=== PATIENT | female | born 1940 | race African-American/Black ===

== ENCOUNTER 2020-03-11 14:46 | Emergency (ER) | payer MEDICARE, MEDICAID ==
[~2020-03-11] VITALS: Ht 151.8 cm; Wt 70.5 kg
[2020-03-11] MEDS ORDERED: ATEN-72 PO (14:58)
[2020-03-11] MEDS ORDERED: GLIP5 PO (14:58)
[2020-03-11] MEDS ORDERED: ASPI81TA39 PO (14:58)
[2020-03-11] MEDS ORDERED: ATOR20TA86 PO (14:58)
[2020-03-11] MEDS ORDERED: TUMERIC PO (14:58)
[2020-03-11] MEDS ORDERED: GABA-1216 PO (14:58)
[2020-03-11] MEDS ORDERED: HYDR-1475 PO (14:58)
[2020-03-11] MEDS ORDERED: BENA5TAB26 PO (14:58)
[2020-03-11] MEDS ORDERED: NIFE90TA63 PO (14:58)
[2020-03-11] MEDS ORDERED: SULF500T60 PO (14:58)
[2020-03-11] MEDS ORDERED: FOLI-130 PO (14:58)
[2020-03-11] MEDS ORDERED: METH2.5 PO (15:00)
[2020-03-11] MEDS ORDERED: ACETAMINOPHEN 500 MG TABLET PO ONE (15:15)
[2020-03-11] MEDS ORDERED: BENA20TA11 PO (15:18)
[2020-03-11] MEDS ORDERED: TURM500C9 PO (15:18)
[2020-03-11] MEDS ORDERED: MORPHINE SULFATE 2 MG/ML SYRINGE IM ONE (16:45)
[2020-03-11 17:13] VITALS: BP 202/91
== END 2020-03-11 17:19 | disposition home or self-care (01) ==
LOC: EMS 14:55
DX: S43.402A Unspecified sprain of left shoulder joint, initial encounter (principal); E11.9 Type 2 diabetes mellitus without complications; E78.00 Pure hypercholesterolemia, unspecified; I10 Essential (primary) hypertension; Z79.82 Long term (current) use of aspirin; W19.XXXA Unspecified fall, initial encounter; Y93.89 Activity, other specified; Y92.89 Other specified places as the place of occurrence of the external cause; Y99.8 Other external cause status
CPT/HCPCS: 73030; 96372; 99283; J2270

== ENCOUNTER 2022-09-16 11:37 | Emergency (ER) | payer MEDICARE, MEDICAID ==
[~2022-09-16] VITALS: Ht 149.9 cm; Wt 72.7 kg
[~2022-09-16 11:37] MED LIST: ASPI81TA39 PO; ATEN-72 PO; ATOR20TA86 PO; BENA20TA83 PO; FOLI-130 PO; GABA-1216 PO; GLIP5TAB12 PO; HYDR25TA2 PO; METH2.5 PO; NIFE90TA91 PO; SULF500T60 PO; TURM500C9 PO
[2022-09-16 12:43] LABS: COVID AG,FIA SOURCE NASAL SWAB
[2022-09-16 13:13] LABS: INFLUENZA TYPE A NEGATIVE FOR TYPE A (NEGATIVE); INFLUENZA TYPE B NEGATIVE FOR TYPE B (NEGATIVE)
[2022-09-16 13:17] LABS: BASOPHILS % (AUTO) 0.2 % (0.0-2.0); EOSINOPHILS % (AUTO) 0 % (1.0-6.0); HEMATOCRIT 29.8 % (36-46); HEMOGLOBIN 9.7 g/dL (12.0-16.0); LYMPHOCYTES % (AUTO) 17.6 % (22.0-44.0); MEAN CORPUSCULAR HEMOGLOBIN 30.4 pg (26.0-34.0); MEAN CORPUSCULAR HGB CONC 32.5 G/dL (31.0-37.0); MEAN CORPUSCULAR VOLUME 94 fL (80-100); MONOCYTES # (AUTO) 3.3 K/uL (0.1-1.0); MONOCYTES % (AUTO) 14.5 % (2.0-9.0); NEUTROPHILS # (AUTO) 15.6 K/uL (1.8-7.7); NEUTROPHILS % (AUTO) 67.7 % (40.0-70.0); PLATELET COUNT (AUTO) 323 K/uL (150-450); RED BLOOD CELL COUNT(AUTO) 3.18 MIL/uL (4.00-5.20); RED CELL DISTRIBUTION WIDTH 14.2 % (11.5-14.5)
[2022-09-16 13:35] LABS: INR 1.1 (0.9-1.1); PROTHROMBIN TIME 11.4 SEC (9.4-11.6)
[2022-09-16 13:44] LABS: ALBUMIN 3.3 g/dL (3.4-5.0); BILIRUBIN,TOTAL 0.6 mg/dL (0.1-1.0); CALCIUM, TOTAL 9.5 mg/dL (8.8-10.5); CREATININE 1.44 mg/dL (0.60-1.30); TOTAL PROTEIN, SERUM 7.4 g/dL (6.4-8.2)
[2022-09-16 13:50] LABS: POTASSIUM 2.8 mmol/L (3.5-5.1)
[2022-09-16] MEDS ORDERED: POTASSIUM CHLORIDE 20 MEQ ER TABLET PO ONE (14:00)
[2022-09-16] MEDS ORDERED: FUROSEMIDE 40 MG/4 ML VIAL IVP ONE (14:45)
[2022-09-16 16:16] LABS: APPEARANCE,URINE CLEAR (CLEAR); BILIRUBIN,URINE NEGATIVE (NEGATIVE); GLUCOSE, URINE (UA) NEGATIVE (NEGATIVE); KETONES,URINE NEGATIVE (NEGATIVE); LEUKOCYTE ESTERASE ,URINE NEGATIVE (NEGATIVE); NITRATE,URINE NEGATIVE (NEGATIVE); OCCULT BLOOD,URINE NEGATIVE (NEGATIVE); PH,URINE 5.5 (5.0-8.0); PROTEIN,URINE 30-70 mg/dL (NEGATIVE); SPECIFIC GRAVITIY, URINE 1.009 (1.003-1.030); UROBILINOGEN,URINE <=1.0 mg/dL (<=1.0)
[2022-09-16] MEDS ORDERED: DEXTROSE 50%-WATER 25 GM/50 ML SYRINGE IVP ONE (17:15)
[2022-09-16 18:00] VITALS: BP 171/81
== END 2022-09-16 19:19 | disposition short-term general hospital (02) ==
LOC: EMS 11:50
DX: I11.0 Hypertensive heart disease with heart failure (principal); I50.9 Heart failure, unspecified; C91.10 Chronic lymphocytic leukemia of B-cell type not having achieved remission; R09.02 Hypoxemia; M19.90 Unspecified osteoarthritis, unspecified site; E11.9 Type 2 diabetes mellitus without complications; E78.00 Pure hypercholesterolemia, unspecified; Z90.81 Acquired absence of spleen; Z20.822 Contact with and (suspected) exposure to COVID-19
CPT/HCPCS: 99285; 96374; 71045; 96375; 87426; 80053; 81003; 82962; 83880; 84484; 85025; 85610; 85730; 87804; 36415; 93005; J1940

== ENCOUNTER 2023-10-12 21:22 | Emergency (ER) | payer MEDICARE, MEDICAID ==
[~2023-10-12] VITALS: Ht 149.9 cm; Wt 71.0 kg
[~2023-10-12 21:22] MED LIST changes: +ATOR20TA PO; -ATOR20TA86 PO; +BENA-18 PO; -BENA20TA83 PO; -GLIP5TAB12 PO; +GLIP5TAB16 PO
[2023-10-12 22:03] LABS: COVID AG,FIA SOURCE NASAL SWAB
[2023-10-12 22:28] LABS: SARS-COV2 (COVID) ANTIGEN,FIA Negative (Negative)
[2023-10-12 22:29] LABS: INFLUENZA TYPE A NEGATIVE FOR TYPE A (NEGATIVE); INFLUENZA TYPE B NEGATIVE FOR TYPE B (NEGATIVE)
[2023-10-12 23:46] LABS: MONOCYTES # (AUTO) 2.4 K/uL (0.1-1.0)
[2023-10-12 23:54] LABS: BASOPHILS % (AUTO) 0.6 % (0.0-2.0); EOSINOPHILS % (AUTO) 0.2 % (1.0-6.0); HEMATOCRIT 31.5 % (36-46); HEMOGLOBIN 10.4 g/dL (12.0-16.0); LYMPHOCYTES # (AUTO) 4.7 K/uL (1.0-4.8); LYMPHOCYTES % (AUTO) 39.1 % (22.0-44.0); MEAN CORPUSCULAR HEMOGLOBIN 31.5 pg (26.0-34.0); MEAN CORPUSCULAR VOLUME 96 fL (80-100); MONOCYTES % (AUTO) 19.8 % (2.0-9.0); NEUTROPHILS # (AUTO) 4.8 K/uL (1.8-7.7); NEUTROPHILS % (AUTO) 40.3 % (40.0-70.0); PLATELET COUNT (AUTO) 330 K/uL (150-450); RED BLOOD CELL COUNT(AUTO) 3.29 MIL/uL (4.00-5.20); RED CELL DISTRIBUTION WIDTH 13.4 % (11.5-14.5); WHITE BLOOD COUNT (AUTO) 11.9 K/uL (4.5-11.0)
[2023-10-12 23:58] LABS: CALCIUM, TOTAL 9.8 mg/dL (8.8-10.5); CREATININE 1.59 mg/dL (0.60-1.30); POTASSIUM 3.6 mmol/L (3.5-5.1)
[2023-10-13] MEDS ORDERED: IPRATROPIUM BROMIDE 0.5 MG/2.5 ML NEB SOLUTION NEB ONE
[2023-10-13] MEDS ORDERED: ALBUTEROL SULFATE 2.5 MG/0.5 ML NEB SOLUTION NEB ONE
[2023-10-13] MEDS ORDERED: SODIUM CHLORIDE 0.9% 1,000 ML IV ONE
[2023-10-13 00:04] LABS: ALBUMIN 3.9 g/dL (3.4-5.0); BILIRUBIN,TOTAL 0.4 mg/dL (0.1-1.0); TOTAL PROTEIN, SERUM 7.5 g/dL (6.4-8.2)
[2023-10-13 00:06] LABS: TROPONIN I-HIGH SENSITIVITY 30 ng/L (<51)
[2023-10-13 00:08] VITALS: PULSE 84; RESP 20; O2SAT 92
[2023-10-13] MEDS ORDERED: FUROSEMIDE 20 MG/2 ML VIAL IVP ONE (00:15)
[2023-10-13] MEDS ORDERED: NITROGLYCERIN 2% (1 GM=INCH) OINTMENT PACKET TP ONE (00:15)
[2023-10-13] MEDS ORDERED: AZITHROMYCIN 500 MG/NS 250 ML IV ONE (00:15)
[2023-10-13] MEDS ORDERED: CefTRIAXone 1 GM/DEXTROSE 50 ML IV ONE (00:15)
[2023-10-13 00:23] VITALS: PULSE 88; RESP 20; O2SAT 98
[2023-10-13 00:23] LABS: RBC MORPHOLOGY COMMENT NORMAL RBC MORPH
[2023-10-13] MEDS ORDERED: ACETAMINOPHEN 325 MG TABLET PO ONE (00:30)
[2023-10-13 00:34] LABS: LACTIC ACID 1.2 mmol/L (0.4-2.0)
[2023-10-13 01:38] VITALS: TEMP 100.3
[2023-10-13 02:12] VITALS: BP 134/76; PULSE 80; RESP 18
== END 2023-10-13 02:49 | disposition short-term general hospital (02) ==
LOC: EMS 21:23
DX: I11.0 Hypertensive heart disease with heart failure (principal); I50.9 Heart failure, unspecified; J98.4 Other disorders of lung; R50.9 Fever, unspecified; M19.90 Unspecified osteoarthritis, unspecified site; E78.00 Pure hypercholesterolemia, unspecified; Z98.890 Other specified postprocedural states; Z20.822 Contact with and (suspected) exposure to COVID-19
CPT/HCPCS: 99285; 71045; 87426; 80053; 83605; 83880; 84484; 85025; 87040; 87804; 36415; 94640 ×2; 93005; 96365; 96366; 96375; 96368; J0456; J0696; J1940; J7030; J7613